=== PATIENT | female | born 1985 | race Caucasian/White ===

== ENCOUNTER 2016-12-23 22:18 | Emergency (ER) | payer OTHER ==
[~2016-12-23 22:18] MED LIST: ACETAMINOPHEN PO; GLUCOTROL PO; IBUPROFEN800 MG PO; JANUVIA100 MG PO; LEVOTHYROXINE88 MCG PO; METFORMIN PO; PERCOCET PO; SIMVASTATIN40 MG PO
== END 2016-12-23 23:04 | disposition home or self-care (01) ==
LOC: SED 22:18
DX: M79.645 Pain in left finger(s) (principal); R20.2 Paresthesia of skin
CPT/HCPCS: 99282